=== PATIENT | female | born 1940 | race Caucasian/White ===

== ENCOUNTER 2025-03-20 20:57 | Emergency (ER) | payer MEDICARE, SELFPAY ==
--- NOTE | ~2025-03-20 | XR_ITS ---
XR chest 1V portable 03/20/2025 21:46 Indication: Delirium Procedure: AP portable chest Comparison: No prior studies for comparison. Findings: Cardiomegaly with mild interstitial edema. Elevated right diaphragm. No significant effusion or pneumothorax. Impression: 1: Cardiomegaly with mild interstitial edema. Reviewed, dictated and finalized at location O. Impression: 1: Cardiomegaly with mild interstitial edema.
[2025-03-20 21:05] VITALS: BP 159/67; PULSE 100; RESP 16; TEMP 36.6; O2SAT 93
[2025-03-20 21:38] LABS: Add Urine Microscopic? YES; Appearance Urine Turbid (Clear); Glucose Urine UA 2+ mg/dL (Negative); Leukocyte Esterase Ur 1+ LEU/UL (Negative); Need Manual Microscopic Reviewed; Nitrate Urine Negative (Negative); Specific Grav Ur 1.039 (1.001-1.035)
[2025-03-20] MEDS: SODIUM CHLORIDE 0.9% IV 1,000 ML 999 ML IV CONT (22:01)
[2025-03-20] MEDS: cefTRIAXone 1 GM in SODIUM CHLORIDE 0.9% IV 50 ML 100 ML IVPB (22:01)
[2025-03-20 22:03] LABS: Hematocrit 45.5 % (37.0-47.0); Hemoglobin 14.3 g/dL (12.0-15.0); Immature Granulocyte Percent A 0.3 % (0-0.5); Lymphocytes Absolute Auto 1.64 K/mm3 (0.9-3.2); Mean Corpuscular HGB Conc 31.4 g/dl (32-36); Mean Corpuscular Hemoglobin 27.9 pg (26-34); Mean Corpuscular Volume 88.9 fl (80-100); Nucleated Red Blood Cells Absolute Auto 0.000 K/mm3 (0.0-0.012); Nucleated Red Blood Cells Perc 0.0 % (0.0-0.2); Platelet Count Result 258 k/mm3 (150-375); Red Blood Count 5.12 M/mm3 (4.2-5.4); White Blood Count 6.8 K/mm3 (4.5-10.0)
--- OUTSIDE RECORDS SUMMARY | 2025-03-20 22:03 | XMS_ITS | Encounter Summary ---
Author Organization [facility] Healthcare Address [address] [place] [address] Care Team Providers Care Mutual Fund Analyst Name Role Phone Ugo Null MD Primary Care Provider Ирина Ley MA Unavailable [phone] Reason for Visit * Reason Onset Date Comments Medical Question/Miscellaneous 03/12/2025 Encounter Details Date Type Department Care Team (Late st Contact Info) Description 03/12/2025 Telephone [facility] Primary Care at [address] [place] [address] Ugo Null MD [address] [place] [address] [address] [place] [address] Medical Question/Miscellaneous Social History Tobacco Use Types Packs/Day Years Used Date Smoking Tobacco: Never Smokeless Tobacco: Never Alcohol Use Standard Drinks/Week Comments No 0 (1 standard drink = 0.6 oz pur e alcohol) AUDIT-C Answer Date Recorded Q1: How often do you have a drink containing alcohol? Never 09/25/2023 Q2: How many drinks containi ng alcohol do you have on a typical day when you are drinking? Patient does not drink Q3: How often do you have si x or more drinks on one occasion? Never 09/25/2023 PHQ-2 Answer Date Recorded PHQ-2 Total Score (If total score is 3 or more points, staff should administer the PHQ-9) 0 10/31/2024 Personal Safety Answer Date Recorded Have you ever been in or are you currently in a harmful physical or emotional relationship or is someone making you feel afraid or unsafe? 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[employer] Gender Identity Not on file Sexual Orientation Not on file documented as of this encounter Miscellaneous Notes * Telephone Encounter - Anisa Corral MA - 03/13/2025 7:46 AM CDT Provider completed task * Telephone Encounter - Ugo Null MD - 03/12/2025 4:59 PM CDT I spoke to the ER doctor about this and we are going to try a stronger medication * Telephone Encounter - Shilpa Sauecda - 03/12/2025 2:51 PM CDT Medical Question/Miscellaneous Caller???s Concern: Ro daughter, verified on HIPAA, said her mother got aggressive at the [facility] and was sent to the ER via ambulance and wanted the Dr to know what's going on. Does message need to be routed? Yes-Action Needed documented in this encounter Plan of Treatment Not on file documented as of this encounter Visit Diagnoses Not on filedocumented in this encounter Care Teams Mutual Fund Analyst Relationship Specialty Start Date End Date Ugo Null MD PCP - General 10/29/12 Ирина Ley MA [address] [facility] [address] [place] [address] ACO Care Plywood Stock Grader 03/13/25 documented as of this encounter
--- OUTSIDE RECORDS SUMMARY | 2025-03-20 22:03 | XMS_ITS | Encounter Summary ---
Author Organization [facility] Healthcare Address [address] [place] [address] Care Team Providers Care Lag Screwer Name Role Phone Ugo Null MD Primary Care Provider Ирина Ley MA Unavailable [phone] Reason for Visit * Reason Onset Date Comments Additional Services Or Orders 03/16/2025 Encounter Details Date Type Department Care Team (Late st Contact Info) Description 03/16/2025 Telephone [facility] Primary Care at [address] [place] [address] Ugo Null MD [address] [place] [address] [address] [place] [address] Additional Services Or Orders Social History Tobacco Use Types Packs/Day Years [...] on file 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 Fax number found in previous message. * Telephone Encounter - Ugo Null MD - 03/16/2025 12:12 PM CDT Okay PT OT and speech therapy modalities she has bad dementia * Telephone Encounter - Lorie Malin - 03/16/2025 9:59 AM CDT Additional Services or Orders Type of Service Requested:Occupational Therapy, Speech Therapy, and Physical Therapy Duration/Number of Visits: unknown Is a verbal order acceptable? Unknown Reason for Request (e.g. condition/symptom, date of COVID exposure if applicable): Trouble adjusting to assisted living states that there has been a previous discussion. Details Regarding Additional Services (e.g. type of home health, type of equipment, type of test, etc.): PT, OT, Speech Therapy Where will services be performed? (if outside of the practice, facility name, address, phone/fax offacility): [facility] Additional Comments: Patient's daughter Ro did not have any other information to provide. Does message need to be routed? Yes-Action Needed documented in this encounter Plan of Treatment Not on file documented as of this encounter Visit Diagnoses Not on filedocumented in this encounter Care Teams Lag Screwer Relationship Specialty Start Date End Date Ugo Null MD PCP - General 10/29/12 Ирина Ley, RAMOS [address] [facility] [address] [place] [address] ACO Care Horse Wrangler 03/13/25 documented as of this encounter
--- OUTSIDE RECORDS SUMMARY | 2025-03-20 22:03 | XMS_ITS | Encounter Summary ---
Author Organization [facility] Healthcare Address [address] [place] [address] Care Team Providers Care Linux Engineer Name Role Phone Ugo Null MD Primary Care Provider Ирина Ley MA Unavailable [phone] Reason for Visit * Reason Onset Date Comments Medical Question/Miscellaneous 02/20/2025 Call Back 02/20/2025 Encounter Details Date Type Department Care Team (Late st Contact Info) Description 02/20/2025 Telephone [facility] Medical Group Primary Care at [address] [place] [address] Ugo Null MD [address] [place] [address] [address] [place] [address] Medical Question/Miscellaneous ; Call Back Social History Tobacco Use Types Packs/Day Years [...] making you feel afraid or unsafe? 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 They received the wrong Patiens Paperwork. They need the H&P or last visit note. (They got Papers on a male, that doesn't even live there.) Physicians Certification form needs refilled out so they have the correct Papers. (The first time the first page did not go through.) Then, they will have everything they need, and she will be good to go. Please Fax these, SAMI. . Sending High Priority, as this is URGENT. Does message need to be routed? Yes-Action Needed * Telephone Encounter - Anisa Corral MA - 02/20/2025 2:34 PM CDT Paperwork re faxed * Telephone Encounter - Jackeline Mijares - 02/20/2025 2:29 PM CDT Call Back Caller???s Concern: Jeaneth with [facility] asking to have the Patient's requested paperwork (scanned in on 02/12/2025) faxed again. Jeaneth said one of the pages is blurry and they also received a medical record on a Patient not at their facility. warm transferred Jeaneth to the backline for assistance. Does message need to be routed? No documented in this encounter Plan of Treatment Not on file documented as of this encounter Visit Diagnoses Not on filedocumented in this encounter Care Teams Linux Engineer Relationship Specialty Start Date End Date Ugo Null MD PCP - General 10/29/12 Ирина Ley, RAMOS [address] [facility] [address] [place] [address] ACO Care Edger Runner 03/13/25 documented as of this encounter
--- OUTSIDE RECORDS SUMMARY | 2025-03-20 22:03 | XMS_ITS | Clinical Summary ---
Author Organization [facility] Medical Office Building A Address [address] [place] [address] Care Team Providers Care Bioinformatician Name Role Phone Ugo Null MD Primary Care Provider Ирина Ley MA Unavailable [phone] Allergies Active Allergy Reactions Criticality Noted Date Comments Latex Rash High 07/30/2018 Levofloxacin Other (See comments) Reaction: Gastrointestinal Intolerance, Naproxen Medications nystatin cream Apply topically 2 (two) times a day Under breasts 30 g 11 11/01/19 [address] (DEPAKOTE) 250 mg EC tablet Take 2 tablets (500 mg total) by mouth nightly Note higher dose 90 tablet 3 11/19/19 25 Active glimepiride (AMARYL) 2 mg tablet TAKE 1 TABLET BY MOUTH ONCE DAILY AFTER BREAKFAST 90 tablet 1 01/13/20 25 Active escitalopram (LEXAPRO) 10 mg tablet Take 2 tablets (20 mg total) by mouth daily 200 tablet 1 01/16/20 25 Active OLANZapine (ZyPREXA ZYDIS) 5 mg disintegrating tablet Take 1 tablet (5 mg total) by mouth nightly 30 tablet 03/12/20 25 2024 Active cholecalciferol (VITAMIN D-3) 5,000 unit tablet Take 1 tablet (5,000 Units total) by mouth daily 90 tablet 3 12/23/19 21 2024 Discontinued(N o longer taking - Do not display on AVS) aspirin 81 mg enteric coated tabletIndications :Ischemic vascular disease Take 1 tablet (81 mg total) by mouth daily 11/01/192024 Discontinued(N o longer taking - Do not display on AVS) QUEtiapine (SEROquel) 25 mg tablet Take 1 tablet (25 mg total) by mouth nightly For nighttime symptoms 30 tablet 11 02/28/202024 Discontinued(N o longer taking - Do not display on AVS) OLANZapine (ZyPREXA ZYDIS) 5 mg disintegrating tablet Take 1 tablet (5 mg total) by mouth nightly 30 tablet 03/12/202024 Discontinued Active Problems Problem Noted Date Diagnosed Date 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 Repeat vitamin-D level as scheduled Medicare annual wellness visit, subsequent 07/30 Assessment & Plan (07/30/2018 4:13 PM MORTGAGE PROFESSIONAL): Pt was advised to continue current therapy and medications for chronic conditions as previously as advised. Continue with healthy dietary management as well. Pt offered no additional complaints today in office. Preoperative medical clearance: Pt is medically stable and aware there are risk associated with surgery and anesthesia. He states the surgeon has reviewed these risk in detail with patient, and wishes to proceed with surgery. They are medically cleared for surgery at this time.. Pt was instructed to contact the office with absolutely any changes prior to and post surgery. We will see them back here as scheduled, or certainly sooner as needed. Hypertension associated with diabetes 11/22/2013 Overview (10/11/2016): BENIGN HYPERTENSION Assessment & Plan (12/21/2020 12:45 PM CDT): Recommend DASH diet, heart-healthy lifestyle, exercise. Discussed the risks of hypertension. Assessment & Plan (07/30/2018 4:09 PM MORTGAGE PROFESSIONAL): Asymptomatic at this time. Last hemoglobin A1c when checked was 7.4%. Under goal at 8%. Continue current dietary modifications, avoidance of consistent carbs to maintain glycemic control. Continue current hypertensives, dash diet, gradual increase exercise as tolerated, and follow-up in office for repeat labs and visit scheduled Gastroesophageal reflux disease 11/22/2013 Overview (10/13/2016): ESOPHAGEAL REFLUX Multiple-type hyperlipidemia 11/22/2013 Overview (10/14/2016): MIXED HYPERLIPIDEMIA Assessment & Plan (07/30/2018 4:06 PM MORTGAGE PROFESSIONAL): Stable with total cholesterol at 216, triglycerides 216, HDL 42, and LDL is 137. There is room for improvement. Continue to implement low-fat, heart healthy diet, increase exercise as tolerated and recheck labs in 2 months as scheduled prior to office visit Osteoarthritis of knee 11/29/2011 Overview (10/13/2016): Right knee DJD Generalized osteoarthritis 05/22/2011 Overview (10/11/2016): General Osteoarthrosis Assessment & Plan (07/30/2018 4:07 PM MORTGAGE PROFESSIONAL): Polyarthralgias well controlled with use of OTC anti-inflammatories p.r.n.. No limitations considering renal dysfunction. Continue application of heat and nonweightbearing exercises for control F/U as needed regarding condition Depression Overview (01/03/2022): Depression Resolved Problems Problem Noted Date Diagnosed Date Resolved Date Infected sebaceous cyst 12/27/201805/09 Assessment & Plan (12/27/2018 10:50 AM CDT): I&D completed today in clinic. Initiating empiric coverage with doxycyline pending results of wound culture. This appears to be an infected sebaceous cyst, but will provide Tdap vaccine D/T her concerns of an insect bite. Wound cleansing instructions provided today in clinic. RTC 1 week After cataract, left eye 07/30/2018 Age-related cataract of left eye 07/30/2018 07/30/2018 Assessment & Plan (07/30/2018 4:13 PM MORTGAGE PROFESSIONAL): Pt wishes to proceed forward with cataract extraction per ophthalmology's recommendation. Understanding risks and benefits review of comorbidities I did encourage Pt due for with cataract extraction with preoperative clearance provided office. Generalized abdominal pain 12/10/2017 0 07/30/2018 Assessment & Plan (12/17/2017 9:55 AM CDT): Abdominal CT scan was negative. I once again reiterated the findings hear any office has a did not demonstrate the cause of her abdominal discomfort therefore I recommended for her to see a GI specialist recommending Dr. Duncan as she has previously seen him was quite happy with his care however she wants to wait another week trying MiraLax once daily and then she will follow up with us over the phone if there is any desire to see a GI specialist to see about a possible colonoscopy or other testings recommended upon getting in with the specialist. Assessment & Plan (12/10/2017 10:08 AM CDT): Abdominal/pelvic CT ordered office today to evaluate for possible diverticulitis causing her symptoms based on abdominal pain, constipation will certainly touch base with her once holding call completed indicating need for additional management which an addendum will be completed and this note indicating need for next step in management Pain in right ankle and joints of right foot 7 07/30/2018 Assessment & Plan (12/29/2016 4:09 PM CDT): X-ray of the right foot and ankle reviewed. No acute fracture or dislocation to my eye. Further direction pending radiology interpretation. Patient stated she got to thinking about it and she thinks the fall was 6 weeks ago. Given persistent pain with ambulation I recommend ortho consultation. Patient would like to see Dr. Chand. Referral arranged. Continue heel walking for now. Enthesopathy of lower leg and ankle region 11/22/2013 05/24/2019 Overview (10/13/2016): ANKLE ENTHESOPATHY NOS Irritable bowel syndrome 11/22/2013 Overview (10/14/2016): IRRITABLE BOWEL SYNDROME Hypothyroidism 11/29/2011 10/31/2024 Overview (10/13/2016): Hypothyroidism Assessment & Plan (07/30/2018 4:16 PM MORTGAGE PROFESSIONAL): Previous euthyroid asymptomatic in office today. Upcoming TSH level scheduled prior to next office visit May to start on medications if indicated. Encounters Date Type Department Care Team Description 03/16/2025 Orders Only [facility] Primary Care at [address] [phone] Ugo Null MD Alzheimer's disease (Primary Dx) 03/16/2025 Telephone [facility] Medical [facility] Primary Care at [address] [phone] Ugo Null MD Additional Services Or Orders 03/13/2025 VAL ED Outreach [facility] Accountable Care Organization [address] [place] [id number] Ирина Ley MA 03/12/2025 4:36 PM CDT - 03/12/2025 11:59 PM CDT Hospital Encounter [facility] Moo Pang MD Discharge Disposition: Discharge to home or self care 03/12/2025 2:23 PM CDT - 03/12/2025 4:35 PM CDT Emergency [facility] Emergency Department [address] [place] [address] Moo Pang MD Aggressive behavior (Primary Dx) Discharge Disposition: Discharge to home or self care 03/12/2025 Telephone [facility] Primary Care at [address] [phone] Ugo Null MD Medical Question/Miscellane ous 03/03/2025 Orders Only [facility] Primary Care at [address] [phone] Ugo Null MD 03/02/2025 Telephone [facility] Primary Care at [address] [place] [phone] Ugo Null MD 02/27/2025 Orders Only [facility] Primary Care at [address] [place] [phone] Ugo Null MD 02/20/2025 Telephone [facility] Primary Care at [address] [place] [phone] Ugo Null MD Medical Question/Miscellane ous; Call Back 02/13/2025 Orders Only [facility] Primary Care at [address] [place] [phone] Ugo Null MD from Last 3 Months Immunizations Immunization Administration Dates Next Due Hep A, Adult 05/06/2015 Influenza, Quadrivalent, Hig h Dose, Preservative Free, Intrr 06/28/2021,05/24/2020 Influenza, Split 03/30/2010 Influenza, Trivalent, High D ose, Split, Preservative Free, Intramuscular 06/09/2019,06/09/2019,03/28/2018,05/17,05/08/2016,04/29/2015,04/02/2013 Influenza, Trivalent, IM (MDV) 06/24/2014,2012 Influenza, Trivalent, Preser vative Free, Intramuscular 07/09/2010 Influenza, Unspecified 09/25/2023(Deferr ed: Patient Refused),09/12/2022(Deferred: Patient Refused - getting at [facility]),03/28/2018 Moderna SARS-CoV-2 Monovalen t Vaccination (12+ YRS) 09/21/2020,08/18/2020 Pneumococcal Conjugate PCV 13 11/26/2014 Pneumococcal Polysaccharide PPV23 07/09/2010 Tdap 12/27/2018 ZOSTER LIVE 05/01/2017 Surgical History Surgery Date Site/Laterality Comments OTHER SURGICAL HISTORY 1982 cyst on liver: cyst removed HYSTERECTOMY 1979 Hysterectomy OTHER SURGICAL HISTORY 2011 Er Visit-swollen leg/[place] [facility] HYSTERECTOMY Hysterectomy HERNIA REPAIR Hernia repair Medical History Medical History Date Comments Hx Other Medical 01-CHEF SAUCIER Hx Other Medical 02-GI Hx Other Medical cyst on liver Arthritis Arthritis History of multiple allergies Al lergies Hypertension Hypertension Diabetes mellitus (HCC) Diabetes Disorder of thyroid Thyroid dise ase Cerebrovascular accident (CVA) (HCC) Cerebrovascular accident Hx Other Medical neuropathy Hx Other Medical poor circulatio n Hx Other Medical liver cystectom y Gastroesophageal reflux disease GERD Depression Depression Hyperlipidemia Hyperlipidemia Hx Other Medical spray in eyes i n agnes went to er; Comments: LNP 11/25/2013 - Family History Medical History Relation Name Comments Breast cancer Cousin Cancer, breast ; Breast cancer Daughter 2 Cancer, breast ; double masectomy Breast cancer Daughter 3 Cancer -breast ; Breast cancer Daughter 4 Cancer, breast ; Coronary artery disease Father Bella nary artery disease; Pancreatic cancer Father Cancer -pa ncreatic; /Cancer, pancreas; Cause of : Cancer, pancreas Colon cancer Mother Cancer, colon; Cause of : Cancer, colon Coronary artery disease Mother Bella nary artery disease; Dementia Mother Dementia; Diabetes Mother Diabetes mellit us; Hypertension Mother Hypertension; Stroke Mother Stroke; Thyroid disease Mother thyroid diso rder; Breast cancer Mother's Sister (2) Cancer, robert ast; Cause of : Cancer, breast Breast cancer Other 1 Maternal Cousin Cancer, robert ast; Cause of : Cancer, breast Blood Clot Other 2 Family history of blood clots; Heart disease Other 3 Family history of Heart disease; Hypertension Other 4 Family history of Hypertension; Osteoarthritis Other 5 Family histor y of Osteoarthritis; Other Other 6 Family history of Descent-; Brain cancer Paternal Grandmother Cancer, brain; Cause of : Cancer, brain Ovarian cancer Sister 1 Cancer -ovari an; Colon cancer Sister 2 Cancer -colon; Other Sister 3 Cancer - ovaria n, colon; Relation Name Status Comments Cousin Daughter 1 Alive Daughter 2 Daughter 3 Daughter 4 Father Mother Mother's Sister (2) Other 1 Maternal Cousin Other 2 Other 3 Other 4 Other 5 Other 6 Paternal Grandmother Sister 1 Sister 2 Sister 3 Social History Tobacco Use Types Packs/Day Years Used Date Smoking Tobacco: Never Smokeless Tobacco: Never Tobacco Cessation:Counseling Given: Not Answered Alcohol Use Standard Drinks/Week Comments No 0 [...] on file Legal Sex Female 8:01 PM MORTGAGE PROFESSIONAL Gender Identity Not on file Sexual Orientation Not on file Obstetrics History Last Filed Vital Signs Vital Sign Reading Time Taken Comments Blood Pressure 118/63 03/12/2025 2:45 PM CDT Pulse 80 03/12/2025 2:45 PM CDT Temperature 36.8 C (98.2 F) 03/12/2025 2:45 PM CDT Respiratory Rate 16 03/12/2025 2:45 PM CDT Oxygen Saturation 96% 03/12/2025 2:45 PM CDT Inhaled Oxygen Concentration - - Weight 78.9 kg (174 lb) 10/31/2024 11:22 AM CDT Height 160 cm (5' 3) 10/31/2024 11:22 AM CDT Body Mass Index 30.82 10/31/2024 11:22 AM CDT Plan of Treatment Health Maintenance Due Date Last Done Comments Hepatitis B Screening 10/09/1958 Zoster Vaccine (2 of 3) 06/26/2017 05/01/2017 Osteoporosis Screening-Bone Density Scan 01/25/2019 01/25/2017, 01/25/2017, 06/10/2010 Breast Cancer Screening-Mammogram 03/19/2021 03/19/2020, 03/19/2020, 03/05/2019, Additional history exists Dilated Eye Exam 03/19/2021 03/19/2020, 08/08/2018 Colon Cancer Screening-Colonoscopy 05/16/2021 05/16/2016, 05/16/2016, 05/16/2016, Additional history exists Covid-19 Vaccine (3 - 2024-2 6 season) 2025 09/21/2020, 08/18/2020 Influenza Vaccine (#1) 2025 , 05/24/2020, 06/09/2019, Additional history exists Hemoglobin A1C 05/02/2025 10/31/2024, 03/0 12/2022, 01/05/2022, Additional history exists Albumin Creatinine Ratio, Urine 10/31/2025 10/31/2024, 01/05/2022, 06/10/2021, Additional history exists Depression Screening 10/31/2025 10/31/2024, 09/25/2023, 09/11/2022, Additional history exists Fall Risk Assessment 10/31/2025 10/31/2024, 09/25/2023, 09/11/2022, Additional history exists Foot Exam 10/31/2025 10/31/2024, 1 03/2024, 09/11/2022, Additional history exists Lipid Panel 10/31/2025 10/31/2024, 03/0 12/2022, 01/05/2022, Additional history exists Well Visit 65+ 10/31/2025 10/31/2024, 03/0 12/2022, 06/28/2021, Additional history exists eGFR 03/12/2026 03/12/2025, 2 11/2024, 09/20/2023, Additional history exists DTaP/Tdap/Td Vaccine (2 - Td or Tdap) 12/27/2028 12/27/2018 Pneumococcal vaccine 65+ Completed 11/26/2014, 07/2010 Colon Cancer Screening-CT Colonography Discontinued 05/16/2016, 05/16/2016, 05/16/2016, Additional history exists Colon Cancer Screening-DNA Stool Discontinued 05/16/2016, 05/16/2016, 05/16/2016, Additional history exists Colon Cancer Screening-FIT Discontinued 05/16, 05/16/2016, 05/16/2016, Additional history exists Colon Cancer Screening-Sigmoidoscopy Discontinued 05/16/2016, 05/16/2016, 05/16/2016, Additional history exists Procedures Procedure Name Priority Date/Time Associated Diagnosis Comments EGFR STAT 03/12/2025 2:54 PM CDT DIFFERENTIAL AUTO STAT 03/12/2025 2:5 4 PM CDT VALPROIC ACID LEVEL, TOTAL STAT 03/12/2025 2:54 PM CDT COMPREHENSIVE METABOLIC PANEL STAT 03/12/2025 2:54 PM CDT CBC WITH AUTO DIFFERENTIAL STAT 03/12/2025 2:54 PM CDT URINALYSIS AND REFLEX TO MICROSCOPIC AND CULTURE STAT 03/12/2025 2:54 PM CDT HEMOGLOBIN A1C Routine 10/31/2024 12:25 PM CDT Hypertension associated with diabetes (HCC) LIPID PANEL Routine 10/31/2024 12:25 PM CDT Hypertension associated with diabetes (HCC) ALBUMIN CREATININE RATIO, URINE Routine 10/31/2024 12:25 PM CDT Hypertension associated with diabetes (HCC) DIABETIC EYE EXAM Routine 03/19/2020 SCREENING MAMMOGRAM BILATERAL W SHAHID Schedule Routine, Read Routine (OP Routine) 03/19/2020 DIABETES FOOT EXAM Routine 11/25/2019 DEXA SCAN Routine 01/25/2017 COLONOSCOPY IMAGES 05/16/2016 from Last 3 Months or Most Recently Relevant to Health Maintenance Results * eGFR (03/12/2025 2:54 PM CDT) eGFR 89 >=60 mL/min/1. 73 m2 Comment: Interpretive Data Reference Interval Normal >/= 90 mL/min/1.73m2 Mildly decreased* 60 - 89 mL/min/1.73m2 Mildly to moderately decreased 45 - 59 mL/min/1.73m2 Moderately to severely decreased 30 - 44 mL/min/1.73m2 Severely decreased 15 - 29 mL/min/1.73m2 Kidney Failure < 15 mL/min/1.73m2 *Relative to young adult level Estimated glomerular filtration rate is determined by the 2020 CKD-EPI equation recommended by the National Kid[employer] (A Unifying Approach to GFR Estimation: Recommendations of the NKF-ASK Task Force on Reassessing the Inclusion of Race in Diagnosing Kidney Disease, JASN 2020). The CKD-EPI equation should not be used for patients with unstable renal function and has not been validated in children and those over 70. Current interpretive data was last reviewed 2021. Blood 03/12/2025 2:54 PM CDT 03/12/2025 2:57 PM CDT us Moo Pang MD LAB BLOOD ORDERABLES Final R esult JAMES BORJAS ([place]) 1 [facility] Department [place] [address] * Differential, auto (03/12/2025 2:54 PM CDT) Neutrophil abs 3.73 1.50 - 6.50 K/cumm Imm gran abs 0.01 0.00 - 0.10 K/cumm [facility] ([place]) Lymphocyte abs 2.29 0.80 - 3.30 K/cumm [facility] ([place]) Monocyte abs 0.60 0.20 - 0.80 K/cumm [facility] ([place]) Eosinophil abs 0.29 0.00 - 0.50 K/cumm [facility] ([place]) Basophil abs 0.04 0.00 - 0.10 K/cumm [facility] ([place]) Neutrophil pct 53.6 % [facility] ([place]) Comment: Interpretive Data Percent cell count reference ranges are not reported, since discordance with absolute values may lead to misinterpretation of CBC data. Current Interpretive Data was last revised on 2017. Imm gran pct 0.1 % [facility] ([place]) Comment: Interpretive Data Percent cell count reference ranges are not reported, since discordance with absolute values may lead to misinterpretation of CBC data. Current Interpretive Data was last revised on 2017. Lymphocyte pct 32.9 % [facility] ([place]) Comment: Interpretive Data Percent cell count reference ranges are not reported, since discordance with absolute values may lead to misinterpretation of CBC data. Current Interpretive Data was last revised on 2017. Monocyte pct 8.6 % [facility]OR[facility] ([place]) Comment: Interpretive Data Percent cell count reference ranges are not reported, since discordance with absolute values may lead to misinterpretation of CBC data. Current Interpretive Data was last revised on 2017. Eosinophil pct 4.2 % [facility] ([place]) Comment: Interpretive Data Percent cell count reference ranges are not reported, since discordance with absolute values may lead to misinterpretation of CBC data. Current Interpretive Data was last revised on 2017. Basophil pct 0.6 % [facility]OR[facility] ([place]) Comment: Interpretive Data Percent cell count reference ranges are not reported, since discordance with absolute values may lead to misinterpretation of CBC data. Current Interpretive Data was last revised on 2017. Blood 03/12/2025 2:54 PM CDT 03/12/2025 2:57 PM CDT us Moo Pang MD LAB BLOOD ORDERABLES Final R esult [facility]OR[facility] ([place]) 1 [facility] Department [place] [address] * (ABNORMAL) Urinalysis reflex to microscopic and culture Urine (03/12/2025 2:54 PM CDT) Color, ur Yellow Yellow Clarity, ur Clear Clear AJMES Maier ([place]) Specific gravity, ur 1.028 1.003 - 1.030 [facility] ([place]) pH, urine 5.5 [facility] ([place]) Comment: Interpretive Data U rine pH is affected by diet, medications, systemic acid-base disturbances, and renal tubular function. pH may affect urinary stone formation. For example, urine pH below 6.0 may help reduce the tendency for calcium phosphate stones and pH greater than 6.0 may reduce the tendency for uric acid stone formation. Source: [facility] [employer] Current Interpretive Data was last revised on 2017 Protein, ur ql Trace Negative [facility]ERNE Dena BORJ[facility] ([place]) Glucose, ur ql 4+(A) Negative [facility] ([place]) Ketones, ur Trace Negative [facility] ([place]) Bilirubin, ur Negative Negative [facility] ([place]) Blood, ur Negative Negative [facility] ([place]) Urobilinogen, ur <2.0 <2.0 mg/dL [facility] ([place]) Nitrite, ur Negative Negative [facility] ([place]) Leukocyte esterase, ur Negative Negative [facility] ([place]) UA reflex comment Reflex conditions for microscopic UA and culture not met. [facility] ([place]) Urine 03/12/2025 2:54 PM CDT 03/12/2025 2:57 PM CDT us Moo Pang MD LAB MICROBIOLOGY - GENERAL O RDERABLES Final Result [facility] ([place]) 1 [facility] Department [place] [address] * CBC with auto differential (03/12/2025 2:54 PM CDT) WBC 6.96 3.80 - 9.90 K/cumm Hgb 13.4 11.9 - 15.5 g/dL [facility] ([place]) Hct 41.1 35.6 - 45.5 % [facility] ([place]) Plt 250 150 - 400 K/cumm [facility] ([place]) MPV 9.1 9.1 - 12.3 fL [facility] ([place]) RBC 4.63 3.90 - 5.20 M/cumm [facility] ([place]) MCV 88.8 81.3 - 96.4 fL [facility] ([place]) MCH 28.9 27.1 - 33.3 pg [facility] ([place]) MCHC 32.6 32.3 - 35.7 g/dL [facility] ([place]) RDW CV 14.3 11.1 - 14.9 % [facility] ([place]) RDW SD 46.0 35.7 - 48.1 fL [facility] ([place]) NRBC abs 0.00 0.00 - 0.01 K/cumm [facility] ([place]) Blood 03/12/2025 2:54 PM CDT 03/12/2025 2:57 PM CDT Moo Pang MD LAB BLOOD ORDERABLES Final R esult Performing Organization Address City/[facility]/ZIP Co de Phone Number JAMES BORJAS ([place]) 1 [facility] [place] [address] * (ABNORMAL) Valproic acid level, total (03/12/2025 2:54 PM CDT) Valproic Acid 6.6(L) 50.0 - 100.0 mcg/mL [facility] ([place]) Comment: Interpretive Data Therapeutic range: 50-100 mcg/mL Current interpretive data was last revised on 2014 Blood 03/12/2025 2:54 PM CDT 03/12/2025 2:57 PM CDT Moo Pang MD LAB BLOOD ORDERABLES Final R esult Performing Organization Address City/[facility]/ZIP Co de Phone Number JAMES BORJAS ([place]) 1 [facility] [place] [address] * (ABNORMAL) Comprehensive metabolic panel (03/12/2025 2:54 PM CDT) Sodium 136 135 - 145 mmol/L [facility] ([place]) Potassium, pl 4.7 3.3 - 4.9 mmol/L [facility] ([place]) Chloride 103 97 - 110 mmol/L [facility] ([place]) CO2 22 22 - 32 mmol/L [facility] ([place] Anion gap 11 2 - 15 mmol/L [facility] ([place]) BUN 16 6 - 25 mg/dL [facility] ([place]) Creatinine 0.57(L) 0.60 - 1.10 mg/dL [facility] ([place]) Glucose 243(H) 70 - 199 mg/dL [facility] ([place]) Comment: Interpretive Data Fasting glucose >/= 126 mg/dl is diagnostic for diabetes. Fasting is defined as no caloric intake for at least 8 hours. Fasting glucose between 100 mg/dl to 125 mg/dl is diagnostic of prediabetes. In a patient with classic symptoms of hyperglycemia or hyperglycemic crisis, a random glucose >/= 200 mg/dl is diagnostic for diabetes. In the absence of unequivocal hyperglycemia, results should be confirmed by repeat testing. The classification and Diagnosis of Diabetes Diabetes Care 2021; 46: S19-S40. Current interpretive data was last revised 2022. Calcium 9.2 8.5 - 10.3 mg/dL [facility] ([place]) Bilirubin, total <0.2 0.1 - 1.2 mg/dL [facility] ([place]) Protein, pl 6.8 6.5 - 8.5 g/dL [facility] ([place]) Albumin 3.9 3.5 - 5.0 g/dL [facility] ([place]) Alk phos 69 40 - 130 Units/L [facility] ([place]) ALT 18 7 - 45 Units/L [facility] ([place]) AST 17 10 - 45 Units/L [facility] ([place]) Comment:Hemolysis present. R esults may be affected. Blood 03/12/2025 2:54 PM CDT 03/12/2025 2:57 PM CDT Moo Pang MD LAB BLOOD ORDERABLES Final R esult [facility] ([place]) 1 [facility] Department [place] [address] * Albumin Creatinine Ratio, Urine (10/31/2024 12:25 PM CDT) Albumin Ur 24.6 mg/L Comment: Interpretive Data No reference range established. Current interpretive data was last revised 2018. Testing performed by: [facility], [address] [place] [address], [place]., [address] Creatinine Ur 233.9 mg/dL [facility] ([place]) Comment: Interpretive Data No reference range established. Current interpretive data was last revised 2018. Testing performed by: [facility], [address] [place] [address], [place]., [address] Albumin Creatinine Ratio, Ur 11 1 - 29 mg/g [facility] ([place]) Comment:Testing performed by : [facility], [address] [place] [address], [place]., [address] Urine 10/31/2024 12:2 5 PM CDT 10/31/2024 4:19 PM CDT Ugo Null MD LAB URINE ORDERABLES Fi nal Result Performing Organization Address [facility] de Phone Number JAMES BORJAS ([place]) [address] [place] [address] * (ABNORMAL) Hemoglobin A1c (10/31/2024 12:25 PM CDT) Hgb A1C 8.0(H) 4.0 - 5.6 % Estimated Average Glucose 183 mg/dL JAMES BORJ[facility] ([place]) Comment: The ADA recommends reporting an estimated Average Glucose (eAG) with all Hemoglobin A1c results using the equation derived from a study of 507 normal and diabetic adults. Minority populations were underrepresented and children were not included. (Diabetes Care 31:0394-7026, 2008). The eAG is not equivalent to a fasting glucose. Blood 10/31/2024 12:2 5 PM CDT 10/31/2024 1:23 PM CDT Ugo Null MD LAB BLOOD ORDERABLES nal Result Performing Organization Address [facility] Co de Phone Number JAMES BORJAS ([place]) [address] [place] [address] * (ABNORMAL) Lipid panel (10/31/2024 12:25 PM CDT) Cholesterol 219(H) 30 - 199 mg/dL Comment: Interpretive Data Ages < or = 19 years Acceptable: <170 mg/dL Borderline high: 170-199 mg/dL High: >or= 200 mg/dL Ages > or = 20 years Desirable: <200 mg/dL Borderline high: 200-239 mg/dL High: >or= 240 mg/dL Literature References: 1. Expert Panel on Integrated Guidelines for Cardiovascular Health and Risk Reduction in Children and Adolescents. Pediatrics 2011;128:S213 2. NCEP Expert Panel. Circulation 2004;110:227 Current Interpretive Data was last revised on 2018. Triglycerides 293(H) <=149 mg/dL JAMES BORJAS ([place]) Comment: Interpretive Data Ages < or = 9 years Acceptable: <75 mg/dL Borderline high: 75-99 mg/dL High: >or= 100 mg/dL Ages 10 to 20 years Acceptable: <90 mg/dL Borderline high: 90-129 mg/dL High: >or= 130 mg/dL Ages > or = 20 years Desirable: <150 mg/dL Borderline high: 150-199 mg/dL High: 200-499 mg/dL Very high: >or= 499 mg/dL Literature References: 1. Expert Panel on Integrated Guidelines for Cardiovascular Health and Risk Reduction in Children and Adolescents. Pediatrics 2011;128:S213 2. NCEP Expert Panel. Circulation 2004;110:227 Current Interpretive Data was last revised on 2018. HDL 49 >=40 mg/dL JAMES BORJAS ([place]) Comment: Interpretive Data Ages < or = 19 years Acceptable: >45 mg/dL Borderline low: 40-45 mg/dL Low: <40 mg/dL Ages > or = 20 years Desirable: >or= 60 mg/dL Low: <40 mg/dL Literature References: 1. Expert Panel on Integrated Guidelines for Cardiovascular Health and Risk Reduction in Children and Adolescents. Pediatrics 2011;128:S213 2. NCEP Expert Panel. Circulation 2004;110:227 Current Interpretive Data was last revised on 2018. LDL, calculated 119 <=129 mg/dL JAMES BORJAS ([place]) Comment: Interpretive Data Ages < or = 19 years Acceptable: <110 mg/dL Borderline high: 110-129 mg/dL High: >or= 130 mg/dL Ages > or = 20 years Optimal: <100 mg/dL Near optimal: 100-129 mg/dL Borderline high: 130-159 mg/dL High: >160 mg/dL Calculated using the Horne LDL-C estimating equation. This equation was implemented on 2024. Prior to this date LDL-C was estimated using the Friedewald equation. Literature References: 1. Expert Panel on Integrated Guidelines for Cardiovascular Health and Risk Reduction in Children and Adolescents. Pediatrics 2011;128:S213 2. NCEP Expert Panel. Circulation 2004;110:227 3. Ozzie M et al. DANIEL Cardiol. 2019November 06;5(5):540-548. doi: 10.1001/[email or web address].2020.0013 Current Interpretive Data was last revised on 2024. Non-HDL Cholesterol 170 mg/dL JAMES BORJAS ([place]) Comment: Interpretive Data Ages < or = 19 years Acceptable: <120 mg/dL Borderline high: 120-144 mg/dL High: >145 mg/dL Ages > or = 20 years When triglycerides are >200 mg/dL, Non-HDL cholesterol is a secondary target of therapy with treatment goals that are 30 mg/dL greater than the LDL cholesterol target. Literature References: 1. Expert Panel on Integrated Guidelines for Cardiovascular Health and Risk Reduction in Children and Adolescents. Pediatrics 2011;128:S213 2. NCEP Expert Panel. Circulation 2004;110:227 Current Interpretive Data was last revised on 2018. Chol/HDL ratio 4 SAROJ BORJAS ([place]AN) Blood 10/31/2024 12:2 5 PM CDT 10/31/2024 1:23 PM CDT Narrative JAMES BORJAS ([place]) - 10/31/2024 2:11 PM CDT Has the patient been fasting for 8 hours or more?->Yes Ugo Null MD LAB BLOOD ORDERABLES Fi nal Result JAMES BORJAS ([place]) 1 [facility] Department [place] [address] * Diabetic Eye Exam (03/19/2020) Historical Provider HEALTH MAINTENANCE Final Result * Screening Mammogram Bilateral W Shahid (03/19/2020) Anatomical Region Laterality Modality Breast Bilateral Mammography Historical Provider IMG MAMMO PROCEDURES Idalmis l Result * DIABETES FOOT EXAM (11/25/2019) Diabetic Foot Exam Abnormal Historical Provider HEALTH MAINTENANCE Final Result * DEXA SCAN (01/25/2017) DEXA Scan Normal us Historical Provider HEALTH MAINTENANCE Final Result * COLONOSCOPY IMAGES (05/16/2016) Anatomical Region Laterality Modality Other Narrative 05/16/2016 Ordered by an unspecified provider. Historical Provider GI PROCEDURE ORDERABLES F inal Result from Last 3 Months or Most Recently Relevant to Health Maintenance Insurance [facility] MEDICARE SUPPLEMENT INSURANCE MEDICARE MEDICARE [facility] MEDICARE SUPPLEMENT INSURANCE MEDICARE [facility] MEDICARE SUPPLEMENT INSURANCE Care Teams Bioinformatician Relationship Specialty Start Date End Date Ugo Null MD PCP - General 10/29/12 Ирина Ley MA [address] [place] [id number] ACO Care Houseperson 03/13/25
--- OUTSIDE RECORDS SUMMARY | 2025-03-20 22:04 | XMS_ITS | Encounter Summary ---
Author Organization [employer] [facility] Address [address] [place] [address] Care Team Providers Care Aeronautical Design Engineer Name Role Phone Ugo Null MD Primary Care Provider Encounter Details Date Type Department Care Team (Late st Contact Info) Description 05/20/2007 Outpatient Historical [facility] Nai Mcrae MD 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
--- OUTSIDE RECORDS SUMMARY | 2025-03-20 22:04 | XMS_ITS | Clinical Summary ---
Author Organization [facility] Administrative Offices Address [address] [place] [address] Care Team Providers Care Correctional Agency Director Name Role Phone Ugo Null MD Primary Care Provider [phone] Allergies Active Allergy Reactions Criticality Noted Date Comments Acetaminophen Unknown 04/09/2007 Latex Unknown 04/09/2007 Medications DYAZIDE PO Take by mouth daily. 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 Gender Identity Not on file Sexual Orientation Not on file Last Filed Vital Signs Vital Sign Reading Time Taken Comments Blood Pressure 140/88 04/09/2007 10:55 AM CDT Pulse 78 04/09/2007 10:55 AM CDT Temperature - - Respiratory Rate - - Oxygen Saturation - - Inhaled Oxygen Concentration - - Weight 88.9 kg (196 lb) 04/09/2007 10:55 AM CDT Height 162.6 cm (5' 4) 04/09/2007 10:55 AM CDT Body Mass Index 33.64 04/09/2007 10:55 AM CDT Plan of Treatment Health Maintenance Due Date Last Done Comments DIABETES ANNUAL RETINAL EXAM 10/09/1957 DIABETES MICROALBUMIN ANNUAL SCREEN 10/09/1957 LDL CHOLESTEROL ANNUAL 10/09/1957 ZOSTER VACCINE (1 of 2) 10/09/1989 OSTEOPOROSIS SCREENING 10/09/2004 RSV VACCINE (60+ or ) (1 - 1-dose 75+ series) 10/09/2014 DIABETES HBA1C Q 6 MONTHS 11/07/2019 05/09/2019, 10/2017 DIABETES ANNUAL FOOT EXAM 11/24/2020 11/25/2019 INFLUENZA VACCINE (#1) 2025 9, 03/28/2018, 05/17/2017, Additional history exists DTAP/TDAP/TD VACCINES (2 - T d or Tdap) 12/27/2028 12/27/2018 COLORECTAL SCREENING Discontinued 05/20/2007 Colorectal Cancer Screening Discontinued PNEUMOCOCCAL VACCINE 50+ YEARS Completed 11/26/2014 , 07/09/2010 FIT-DNA Q 3 years Discontinued FIT/FOBT Q 1 year Discontinued Flex Sig/CT Colonography Q 5 years Discontinued Insurance [facility]IC[facility] [place] [id number] Care Teams Correctional Agency Director Relationship Specialty Start Date End Date Ugo Null MD [address] [place] [address] [place] [address] PCP - General Internal Medicine 02/04/18
--- OUTSIDE RECORDS SUMMARY | 2025-03-20 22:04 | XMS_ITS | Encounter Summary ---
Author Organization [facility] Address [address] [place] [address] Care Team Providers Care Ophthalmic Surgical Assistant Name Role Phone Ugo Null MD Primary Care Provider Ugo Null MD Primary Care Provider Simone Rickyabdullahi Ruvalcaba LPN Unavailable [phone] Ирина Ley MA Unavailable [phone] Reason for Referral * Diagnostic Imaging (Routine) - Closed Specialty Diagnoses / Procedures Referred By Contac t Referred To Contact Procedures Dexa Axial Skeleton Bone Density 1 or 2 Site [facility] Health Information Management [address] [place] [address] Phone: tel: fax: [facility] Referral ID Status Reason Start Date Expiration Date Visits Re quested Visits Authorized [id number] Closed 05/08/2019 11/16/2020 1 1 YLENE TORCH OPERATOR Encounter Details Date Type Department Care Team (Late st Contact Info) Description 06/10/2010 Orders Only [facility] Health Information Management [address] [place] [id number] Ugo Null MD [address] [place] [address] [place] [address] Social History Tobacco Use Types Packs/Day Years Used Date Smoking Tobacco: Never Assessed Comments Unknown Sex and Gender Information Value Date Recorded Sex Assigned at Not on file Legal Sex Female 8:01 PM ACETYLENE TORCH OPERATOR Gender Identity Not on file Sexual Orientation Not on file documented as of this encounter Plan of Treatment Not on file documented as of this encounter Procedures Procedure Name Priority Date/Time Associated Diagnosis Comments DEXA AXIAL SKELETON BONE DENSITY 1 OR MORE SITES Schedule Routine, Read Routine (OP Routine) 06/10/2010 documented in this encounter Results * Dexa Axial Skeleton Bone Density 1 or 2 Site (06/10/2010) Anatomical Region Laterality Modality Body N/A Radiographic Elle ging Historical Provider MD ESPARZA DXA PROCEDURES Final Result documented in this encounter Visit Diagnoses Not on filedocumented in this encounter Additional Health Concerns Infection Onset Date Last Indicated Resolved Time COVID: Suspected 09/20/2023 09/20/2023 09/20/2023 11:11 PM CDT documented as of this encounter Care Teams Ophthalmic Surgical Assistant Relationship Specialty Start Date End Date Ugo Null MD PCP - General 10/29/12 Ugo Null MD PCP - General 05/09/07 10/28/12 Michelle Nichols LPN [address] [place], [place] [id number] ACO Care Automobile Glass Technician 09/24/23 09/26/23 Ирина Ley MA [address] [place] [address] ACO Care Automobile Glass Technician 03/13/25 documented as of this encounter
--- OUTSIDE RECORDS SUMMARY | 2025-03-20 22:04 | XMS_ITS | Clinical Summary ---
Author Organization [facility] [employer] Address [address] [place] [address] Care Team Providers Care Rn Homecare Name Role Phone Ugo Null MD Primary Care Provider Source Comments [facility] [employer],non-owned Affiliates and Associated Physician Practices is amultiple site organization consisting of ambulatory clinics and hospital sitesin [place], [place], [place] and [place]. This disclosure is being madepursuant to the Care Everywhere program and may not contain all information available regarding this patient. Last updated 18.[facility] [employer] Allergies Active Allergy Reactions Criticality Noted Date Comments Adhesive Sensitivity Itching 06/17/2019 Latex Itching 06/17/2019 Medications * Be aware that medications may not be up to date on this document. Alwaysverify current medications with the patient. amLODIPine (NORVASC) 5 MG tablet TAKE 1 TABLET BY MOUTH TWICE DAILY 9 Active metFORMIN ER 24hr (GLUCOPHAGE XR) 500 MG tablet TAKE 2 TABLETS BY MOUTH ONCE DAILY WITH BREAKFAST 3 9 Active pantoprazole EC (PROTONIX) 40 MG tablet TAKE ONE TABLET BY MOUTH ONCE DAILY FOR ACID REFLUX 8 Active Active Problems Problem Noted Date Diagnosed Date Primary osteoarthritis of right knee 06/23/2019 Social History Tobacco Use Types Packs/Day Years Used Date Smoking Tobacco: Never Assessed Comments Unknown Sex and Gender Information Value Date Recorded Sex Assigned at Not on file Legal Sex Female 1:32 PM PLANT PRODUCTION MANAGER Gender Identity Not on file Sexual Orientation Not on file Last Filed Vital Signs Vital Sign Reading Time Taken Comments Blood Pressure - - Pulse - - Temperature - - Respiratory Rate - - Oxygen Saturation - - Inhaled Oxygen Concentration - - Weight 86.2 kg (190 lb) 06/17/2019 11:06 AM PLANT PRODUCTION MANAGER Height 162.6 cm (5' 4) 06/17/2019 11:06 AM PLANT PRODUCTION MANAGER Body Mass Index 32.61 06/17/2019 11:06 AM PLANT PRODUCTION MANAGER Plan of Treatment Health Maintenance Due Date Last Done Comments BONE DENSITY TESTING 1939 DTAP/TDAP/TD VACCINES (1 - Tdap) 10/09/1958 PNEUMOCOCCAL VACCINE 50+ (1 of 1 - PCV) 10/09/1989 ZOSTER VACCINE (1 of 2) 10/09/1989 Respiratory Syncytial Virus (RSV) Vaccine Pt: or over 60 yrs (1 - 1-dose 75+ series) 10/09/2014 DEPRESSION SCREENING 07/09/2024 COVID-19 VACCINE ( - season) 2025 INFLUENZA VACCINE (#1) 2025 9, 03/28/2018, 05/17/2017, Additional history exists HEPATITIS B VACCINE Aged Out No longe r eligible based on patient's age to complete this topic HIB VACCINE Aged Out No longer eligi ble based on patient's age to complete this topic HPV VACCINE Aged Out No longer eligi ble based on patient's age to complete this topic MENINGOCOCCAL (Group B) VACCINE SHARED DECISION-MAKING Aged Out No longer eligible based on patient's age to complete this topic MENINGOCOCCAL GROUPS A/C/Y/W VACCINE Aged Out No longer eligible based on patient's age to complete this topic Insurance MEDICARE [employer] INSURANCE [employer] Care Teams Rn Homecare Relationship Specialty Start Date End Date Ugo Null MD [address] [place] [id number] PCP - General Internal Medicine 06/17/19
--- NOTE | 2025-03-20 22:07 | ED_ITS ---
HPI - General Adult General Chief complaint: Psychiatric Symptoms Stated complaint: AGGRESSIVE BEHAVIOR AT [facility] Time Seen by Provider: 03/20/25 20:59 History of Present Illness HPI narrative: Patient is an 84-year-old female who presents the emergency department this evening from her [facility] care facility due to aggressive behavior towards staff. Patient is alert and oriented to person only which is her baseline. She is currently common cooperative, not aggressive towards staff. No additional symptoms or concerns. Related Data Allergies Allergy/AdvReac Type Severity Reaction Status Date / Time latex Allergy Unknown SKIN Unverified 03/29/16 12:13 IRRITATION No Known Allergies Allergy Unknown Verified 03/29/16 12:06 Review of Systems 2 Review of Systems: All systems are reviewed and are negative unless stated otherwise in the HPI. [facility] Family History Family History Mother Cerebrovascular accident Other Diabetes mellitus Family history of cardiovascular disease Family history of malignant neoplasm Hypertension Social History Social History Smoking status: Never smoker Alcohol intake: never Substance use type: does not use Exam 2 Narrative: General: Alert, awake, afebrile, in no acute distress. HEENT: PERRL, no rhinorrhea, no post nasal drip, oropharynx clear. Neck: Trachea midline, no JVD, no lymphadenopathy. Cardiovascular: Regular rate and rhythm, no murmurs, rubs or gallops, no peripheral edema. Respiratory: Clear to auscultation bilaterally, no tachypnea, no wheezing, no rhonchi, no rubs, no respiratory distress. Abdomen: Soft, nontender, nondistended, no rebound, no guarding, no peritoneal signs. Musculoskeletal: No joint swelling or deformity, normal muscle tone. Skin: No rashes or petechia, no signs of infection. Psychiatric: Normal behavior and judgment for situation. Neurological: Alert and oriented to person, at baseline Follows all commands. No focal deficits, speech is clear and fluent. Course Vital Signs Vital signs: Vital Signs Temperature 97.9 F 03/20/25 21:05 Pulse Rate 100 03/20/25 21:05 Respiratory Rate 16 03/20/25 21:05 Blood Pressure 159/67 H 03/20/25 21:05 Pulse Oximetry 93 03/20/25 21:05 Oxygen Delivery Room Air 03/20/25 21:05 Temperature 97.9 F 03/20/25 21:05 Pulse Rate 100 03/20/25 21:05 Respiratory Rate 16 03/20/25 21:05 Blood Pressure 159/67 H 03/20/25 21:05 Pulse Oximetry 93 03/20/25 21:05 Oxygen Delivery Room Air 03/20/25 21:05 Medical Decision Making MDM Narrative Medical decision making narrative: The patient was evaluated by myself in the emergency department. History is obtained from patient who is an independent historian and physical exam was performed. External medical records were reviewed at this time. IV was established and pertinent tests were ordered. Patient was administered 1 L IV fluid bolus with normal saline. Laboratory results obtained revealing no acute process. Urinalysis revealed urinary tract infection. Patient was administered 1 g of IV Rocephin at this time and from the she will be sent back to her [facility] care facility on oral antibiotics. Imaging studies obtained included CXR which was independently interpreted by me revealing no acute process, elevation of the right hemidiaphragm, which is pending final radiology interpretation. Differential diagnosis considerations include delirium versus dementia, infectious process such as pneumonia, UTI, dehydration, electrolyte derangements. Comorbidities impacting this visit include history of dementia. I have evaluated and discussed social determinants of health with the patient that could potentially impact subsequent diagnosis and treatment plans. On repeat assessment of the patient, reevaluation revealed that the patient is doing well and is in no acute distress. Patient symptoms have improved since she arrived to our emergency department. Repeat vital signs were all reviewed and noted to be stable. Differential diagnosis and treatment plan were discussed with the patient at bedside. Patient agrees with discussion and after shared medical decision making agrees with discharge. All questions were answered to the patient's satisfaction. Patient will follow up with her PCP in 3-5 days. Script for cephalexin was sent to patient's pharmacy to take as prescribed for her UTI. Patient was provided with strict return precautions and instructed to return to the emergency department if any new or worsening symptoms develop. The patient was discharged in stable condition. Vital Signs Vital Signs: Vital Signs Temperature 97.9 F 03/20/25 21:05 Pulse Rate 100 03/20/25 21:05 Respiratory Rate 16 03/20/25 21:05 Blood Pressure 159/67 H 03/20/25 21:05 Pulse Oximetry 93 03/20/25 21:05 Oxygen Delivery Room Air 03/20/25 21:05 Temperature 97.9 F 03/20/25 21:05 Pulse Rate 100 03/20/25 21:05 Respiratory Rate 16 03/20/25 21:05 Blood Pressure 159/67 H 03/20/25 21:05 Pulse Oximetry 93 03/20/25 21:05 Oxygen Delivery Room Air 03/20/25 21:05 Lab Data 03/20/25 21:20 03/20/25 21:20 Labs: Lab Results 03/20/25 Range/Units 21:20 WBC 6.8 (4.5-10.0) K/mm3 RBC 5.12 (4.2-5.4) M/mm3 Hgb 14.3 (12.0-15.0) g/dL Hct 45.5 (37.0-47.0) % MCV 88.9 (80-100) fl MCH 27.9 (26-34) pg MCHC 31.4 L (32-36) g/dl RDW 13.8 (11.5-14.5) % Plt Count 258 (150-375) k/mm3 MPV 9.0 (7.4-10.4) fl Immature Gran % (Auto) 0.3 (0-0.5) % Neut % (Auto) 63.6 (45.5-73.1) % Lymph % (Auto) 24.1 (18.3-44.2) % [place] % (Auto) 9.7 H (2.6-8.5) % Eos % (Auto) 1.9 (0-4.4) % Baso % (Auto) 0.4 (0.2-1.2) % Lymph # (Auto) 1.64 (0.9-3.2) K/mm3 [place] # (Auto) 0.7 H (0.1-0.6) K/mm3 Eos # (Auto) 0.1 (0-0.3) K/mm3 Baso # (Auto) 0.0 (0.0-0.1) K/mm3 Abs Immat Gran (auto) 0.02 (0.00-0.031) K/mm3 Absolute Neuts (auto) 4.3 (1.3-6.7) K/mm3 Absolute Nucleated RBC 0.000 (0.0-0.012) K/mm3 Nucleated RBC % 0.0 (0.0-0.2) % Sodium 136 L (137-145) mmol/L Potassium 4.5 (3.4-5.0) mmol/L Chloride 101 (98-107) mmol/L Carbon Dioxide 25 (22-30) mmol/L Anion Gap 10 (4-12) mmol/L BUN 14 (7-17) mg/dL Creatinine 0.78 (0.7-1.0) mg/dL Estim Creat Clear Calc 46 ml/min Estimated GFR > 60 (59 - ) Glucose 260 H (65-110) mg/dL Calcium 9.1 (8.4-10.2) mg/dL Magnesium 1.8 (1.6-2.3) mg/dL Total Bilirubin 0.3 (0.2-1.3) mg/dL AST 31 (14-36) U/L ALT 29 (6-35) U/L Alkaline Phosphatase 69 (38-126) U/L Total Protein 7.7 (6.3-8.2) g/dL Albumin 4.3 (3.5-5.1) g/dL Urine Color Yellow (Yellow) Urine Appearance Turbid H (Clear) Urine pH 5.0 (5.0-9.0) Ur Specific [place] 1.039 H (1.001-1.035) Urine Protein 2+ H (Negative) mg/dL Urine Glucose (UA) 2+ H (Negative) mg/dL Urine Ketones 1+ H (Negative) mg/dL Ur Blood (Man) Trace (Negative) Urine Nitrate Negative (Negative) Urine Bilirubin Negative (Negative) Urine Urobilinogen 1.0 (<2.0) mg/dL Add Ur Microanalysis Reviewed Leukocyte Esterase Rfl 1+ H (Negative) BLAYNE/UL Urine RBC 3-5 H (0-2) /hpf Urine WBC >100 H (0-3) /hpf Ur Squamous Epith Cells Many H (Few) /hpf Urine Bacteria 4+ H /hpf Urine Casts 6-10 Hyaline Casts Present (None) /lpf Urine Mucus Present /lpf Discharge Plan Discharge Clinical Impression: Acute UTI, Delirium Patient Disposition: SNF Condition: Improved Instructions: Urinary Tract Infection in Older Adults (ED) Additional Instructions: Please follow-up with the family doctor within the next 3-5 days. Return emergency department if any new or worsening symptoms develop. Take prescribed antibiotic as instructed for UTI. Patient Language: Bangladeshi Prescriptions: New cephalexin 500 mg capsule 500 mg PO Q12H 7 Days Qty: 14 0RF Follow-up/Referrals: PHYSICIAN NOT ON STAFF,NONSTAFF [Primary Care Provider] - 3 Days Yan Sarmiento MD [Physician, Family Practice] - 3 Days Time of Disposition: 22:15
[2025-03-20 22:15] LABS: Alanine Aminotransferase 29 U/L (6-35); Albumin Level 4.3 g/dL (3.5-5.1); Alkaline Phosphatase 69 U/L (38-126); Anion Gap 10 mmol/L (4-12); Aspartate Amino Transferase 31 U/L (14-36); Bilirubin,Total 0.3 mg/dL (0.2-1.3); Blood Urea Nitrogen 14 mg/dL (7-17); Calcium 9.1 mg/dL (8.4-10.2); Carbon Dioxide 25 mmol/L (22-30); Chloride 101 mmol/L (98-107); Estimated CRCL calculation 46 ml/min; Estimated Glomerular Filt Rate > 60; Glucose 260 mg/dL (65-110); Magnesium 1.8 mg/dL (1.6-2.3); Potassium 4.5 mmol/L (3.4-5.0); Sodium 136 mmol/L (137-145); Total Protein 7.7 g/dL (6.3-8.2)
[2025-03-20 23:37] VITALS: BP 150/71; PULSE 85; RESP 20; TEMP 37.1; O2SAT 97
== END 2025-03-20 23:39 ==
PROVIDERS: Emergency Provider Emergency Medicine
DX: N39.0 Urinary tract infection, site not specified (principal); R41.0 Disorientation, unspecified
CPT/HCPCS: 36415; 71045; 80053; 81001; 83735; 85025; 96365; 99284; J0696; J7030

== ENCOUNTER 2025-03-26 09:48 | Emergency (ER) | payer MEDICARE, SELFPAY ==
[2025-03-26] VITALS (9 sets, daily range): BP systolic 126–145; BP diastolic 64–76; PULSE 66–74; RESP 14–20; TEMP 36.8; O2SAT 92–96
--- NOTE | ~2025-03-26 | XR_ITS ---
Examination: XR chest 2V Clinical History: ams Comparison: X-ray 03/20/2025 Technique: PA and Lateral Findings: Heart size unchanged. Elevated right hemidiaphragm, associated basilar atelectasis. Left basilar patchy opacity. No acute bony abnormality. IMPRESSION: 1. Persistent bibasilar atelectasis and/or airspace disease. Reviewed, dictated and finalized at location R.
--- NOTE | ~2025-03-26 | CT_ITS ---
CT HEAD NON-CONTRAST Clinical History: AMS Comparison: None Technique: Unenhanced axial images skull base to vertex Coronal, sagittal reformats CT images acquired with automatic exposure control for dose reduction DLP: 605 mGy-cm Findings: Global atrophy. White matter changes from chronic microvascular ischemic disease. Cysts Sulci, ventricles: Unremarkable. No intracerebral hemorrhage. No evidence acute territorial infarct. No mass effect, midline shift. Bony calvarium intact. Visualized paranasal sinuses: Clear. Mastoid air cells: Clear. IMPRESSION: 1. No acute intracranial findings. Reviewed, dictated and finalized at location R.
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
--- OUTSIDE RECORDS SUMMARY | 2025-03-26 10:53 | XMS_ITS | Encounter Summary ---
Author Organization [facility] Address [address] [place] [address] Care Team Providers Care Middle School Tutor Name Role Phone Ugo Null MD Primary Care Provider Ugo Null MD Primary Care Provider Simone Rickyabdullahi Ruvalcaba LPN Unavailable [phone] Ирина Ley MA Unavailable [phone] Reason for Referral * Diagnostic Imaging (Routine) - Closed Specialty Diagnoses / Procedures Referred By Contac t Referred To Contact Procedures Dexa Axial Skeleton Bone Density 1 or 2 Site [facility] Health Information Management [address] [place] [address] Phone: tel: fax: [facility] Referral ID Status Reason Start Date Expiration Date Visits Re quested Visits Authorized [id number] Closed 05/08/2019 11/16/2020 1 1 SHAPER Encounter Details Date Type Department Care Team (Late st Contact Info) Description 06/10/2010 Orders Only [facility] Health Information Management [address] [place] [address] Ugo Null MD [address] [place] [address] [place] [address] Social History Tobacco Use Types Packs/Day Years Used Date Smoking Tobacco: Never Assessed Comments Unknown Sex and Gender Information Value Date Recorded Sex Assigned at Not on file Legal Sex Female 

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
--- OUTSIDE RECORDS SUMMARY | 2025-03-26 10:53 | XMS_ITS | Encounter Summary ---
Author Organization [facility] Healthcare Address [address] [place] [address] Care Team Providers Care Hair Colorist Name Role Phone Ugo Null MD Primary Care Provider Ирина Ley MA Unavailable [phone] Reason for Visit * Reason Onset Date Comments Additional Services Or Orders 03/16/2025 Encounter Details Date Type Department Care Team (Late st Contact Info) Description 03/16/2025 Telephone [facility] Primary Care at [address] [place] [address] Ugo Null MD [address] [place] [address] [address] [place] [address] Additional Services Or Orders Social History Tobacco [...] on file 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 Fax number found in previous message. * [...] the practice, facility name, address, phone/fax offacility): [facility] Additional Comments: Patient's daughter Ro did not have any other information to provide. Does message need to be routed? Yes-Action Needed documented in this encounter Plan of Treatment Not on file documented as of this encounter Visit Diagnoses Not on filedocumented in this encounter Care Teams Hair Colorist Relationship Specialty Start Date End Date Ugo Null MD PCP - General 10/29/12 Ирина Ley, RAMOS [address] [address] [place] [address] ACO Care Furnace Packer 03/13/25 documented as of this encounter
--- OUTSIDE RECORDS SUMMARY | 2025-03-26 10:53 | XMS_ITS | Clinical Summary ---
Author Organization [facility] Address [address] [place] [place] [address] Care Team Providers Care Hvac Technician Name Role Phone Ugo Null MD Primary Care Provider Source Comments [facility],non-owned Affiliates and Associated Physician Practices is amultiple site organization consisting of ambulatory clinics and hospital sitesin [place], [place], [place] and [place]. This disclosure is being madepursuant to the Care Everywhere program and may not contain all information available regarding this patient. Last updated 18.[facility] Allergies Active Allergy Reactions Criticality Noted Date [...] on file Legal Sex Female 1:32 PM FINANCIAL SALES ADVISOR Gender Identity Not on file Sexual Orientation Not on file Last Filed Vital Signs Vital Sign Reading Time Taken Comments Blood Pressure - - Pulse - - Temperature - - Respiratory Rate - - Oxygen Saturation - - Inhaled Oxygen Concentration - - Weight 86.2 kg (190 lb) 06/17/2019 11:06 AM FINANCIAL SALES ADVISOR Height 162.6 cm (5' 4) 06/17/2019 11:06 AM FINANCIAL SALES ADVISOR Body Mass Index 32.61 06/17/2019 11:06 AM FINANCIAL SALES ADVISOR Plan of Treatment Health Maintenance Due Date [...] age to complete this topic Insurance MEDICARE [employer] Care Teams Hvac Technician Relationship Specialty Start Date End Date Ugo Null MD [address] [place] [id number] PCP - General Internal Medicine 06/17/19
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
--- OUTSIDE RECORDS SUMMARY | 2025-03-26 10:53 | XMS_ITS | Clinical Summary ---
Author Organization [facility] Medical Office Building A Address [address] [place] [address] Care Team Providers Care Linoleum Mechanic Name Role Phone Ugo Null MD Primary Care Provider Ирина Ley MA Unavailable [phone] Allergies Active Allergy Reactions Criticality Noted [...] 07/30/2018 Assessment & Plan (07/30/2018 4:11 PM BANANA GRADER): Continue with current vitamin-D weekly supplementation as previously prescribed. Repeat vitamin-D level as scheduled Medicare annual wellness visit, subsequent 07/30 Assessment & Plan (07/30/2018 4:13 PM BANANA GRADER): Pt was advised to continue current therapy [...] hypertension. Assessment & Plan (07/30/2018 4:09 PM BANANA GRADER): Asymptomatic at this time. Last hemoglobin A1c [...] HYPERLIPIDEMIA Assessment & Plan (07/30/2018 4:06 PM BANANA GRADER): Stable with total cholesterol at 216, triglycerides [...] Osteoarthrosis Assessment & Plan (07/30/2018 4:07 PM BANANA GRADER): Polyarthralgias well controlled with use of OTC [...] 07/30/2018 Assessment & Plan (07/30/2018 4:13 PM BANANA GRADER): Pt wishes to proceed forward with cataract [...] Hypothyroidism Assessment & Plan (07/30/2018 4:16 PM BANANA GRADER): Previous euthyroid asymptomatic in office today. Upcoming TSH level scheduled prior to next office visit May to start on medications if indicated. Encounters Date Type Department Care Team Description 03/26/2025 Telephone [facility] Primary Care at [address] [phone] Ugo Null MD Medical Question/Miscellane ous 03/16/2025 Orders Only [facility] Primary Care at [address] [phone] Ugo Null MD Alzheimer's disease (Primary Dx) 03/16/2025 Telephone [facility] Medical [facility] Primary Care at [address] [phone] Ugo Null MD Additional Services Or Orders 03/13/2025 VAL ED Outreach [facility] Accountable Care Organization [address] [place] [id number] Ирина Ley MA 03/12/2025 4:36 PM CDT - 03/12/2025 11:59 PM CDT Hospital Encounter [facility] Moo Pang MD Discharge Disposition: Discharge to home or self care 03/12/2025 2:23 PM CDT - 03/12/2025 4:35 PM CDT Emergency [facility] Emergency Department [address] [place] [address] Moo Pang MD Aggressive behavior (Primary Dx) Discharge Disposition: Discharge to home or self care 03/12/2025 Telephone [facility] Medical [facility] Primary Care at [address] [phone] Ugo Null MD Medical Question/Miscellane ous 03/03/2025 Orders Only [facility] Primary Care at [address] [place] [phone] Ugo Null MD 03/02/2025 Telephone [facility] Primary Care at [address] [place] [phone] Ugo Null MD 02/27/2025 Orders Only [facility] Primary Care at [address] [place] [phone] Ugo Null MD 02/20/2025 Telephone [facility] Primary Care at [address] [place] [phone] Ugo Null MD Medical Question/Miscellane ous; Call Back 02/13/2025 Orders Only [facility] Medical [facility] Primary Care at [address] [phone] Ugo Null MD from Last 3 Months Immunizations Immunization Administration Dates Next Due Hep A, Adult 05/06/2015 Influenza, Quadrivalent, Hig h Dose, Preservative Free, Intrr 06/28/2021,05/24/2020 Influenza, Split 03/30/2010 Influenza, Trivalent, High D ose, Split, Preservative Free, Intramuscular 06/09/2019,06/09/2019,03/28/2018,05/17,05/08/2016,04/29/2015,04/02/2013 Influenza, Trivalent, IM (MDV) 06/24/2014,2012 Influenza, Trivalent, Preser vative Free, Intramuscular 07/09/2010 Influenza, Unspecified 09/25/2023(Deferr ed: Patient Refused),09/12/2022(Deferred: Patient Refused - getting at [facility]),03/28/2018 Moderna SARS-CoV-2 Monovalen t Vaccination (12+ YRS) 09/21/2020,08/18/2020 Pneumococcal Conjugate PCV 13 11/26/2014 Pneumococcal Polysaccharide PPV23 07/09/2010 Tdap 12/27/2018 ZOSTER LIVE 05/01/2017 Surgical History Surgery Date Site/Laterality Comments OTHER SURGICAL HISTORY 1981 cyst on liver: cyst removed HYSTERECTOMY 1979 Hysterectomy OTHER SURGICAL HISTORY 2011 Er Visit-swollen leg/[place] [facility] HYSTERECTOMY Hysterectomy HERNIA REPAIR Hernia repair Medical History Medical History Date Comments 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 Hx Other Medical 02-GI Hx Other Medical cyst on liver Arthritis Arthritis History of multiple allergies [place] Hypertension Hypertension Diabetes mellitus (HCC) Diabetes Disorder [...] on file Legal Sex Female 8:01 PM BANANA GRADER Gender Identity Not on file Sexual Orientation [...] 06/28/2021, Additional history exists eGFR 03/12/2026 03/12/2025, 04/2 11/2024, 09/20/2023, Additional history exists DTaP/Tdap/Td Vaccine [...] Schedule Routine, Read Routine (OP Routine) 03/19/2020 [facility] DIABETES FOOT EXAM Routine 11/25/2019 HM DEXA SCAN Routine 01/25/2017 COLONOSCOPY IMAGES 05/16/2016 [...] LAB BLOOD ORDERABLES Final R esult [facility] ([place]) 1 [facility] Department [place] [address] * Differential, auto (03/12/2025 2:54 PM CDT) Neutrophil abs 3.73 1.50 - 6.50 K/cumm Imm gran abs 0.01 0.00 - 0.10 K/cumm [facility] ([place]) Lymphocyte abs 2.29 0.80 - 3.30 K/cumm [facility] ([place]) Monocyte abs 0.60 0.20 - 0.80 K/cumm [facility] ([place]) Eosinophil abs 0.29 0.00 - 0.50 K/cumm [facility] ([place]) Basophil abs 0.04 0.00 - 0.10 K/cumm [facility] ([place]) Neutrophil pct 53.6 % [facility] ([place]) Comment: Interpretive Data Percent cell count reference ranges are not reported, since discordance with absolute values may lead to misinterpretation of CBC data. Current Interpretive Data was last revised on 2017. Imm gran pct 0.1 % [facility] ([place]) Comment: Interpretive Data Percent cell count reference ranges are not reported, since discordance with absolute values may lead to misinterpretation of CBC data. Current Interpretive Data was last revised on 2017. Lymphocyte pct 32.9 % [facility] ([place]) Comment: Interpretive Data Percent cell count reference ranges are not reported, since discordance with absolute values may lead to misinterpretation of CBC data. Current Interpretive Data was last revised on 2017. Monocyte pct 8.6 % [facility] ([place]) Comment: Interpretive Data Percent cell count reference ranges are not reported, since discordance with absolute values may lead to misinterpretation of CBC data. Current Interpretive Data was last revised on 2017. Eosinophil pct 4.2 % [facility] ([place]) Comment: Interpretive Data Percent cell count reference ranges are not reported, since discordance with absolute values may lead to misinterpretation of CBC data. Current Interpretive Data was last revised on 2017. Basophil pct 0.6 % [facility] ([place]) Comment: Interpretive Data Percent cell count reference ranges are not reported, since discordance with absolute values may lead to misinterpretation of CBC data. Current Interpretive Data was last revised on 2017. Blood 03/12/2025 2:54 PM CDT 03/12/2025 2:57 PM CDT Moo Pang MD LAB BLOOD ORDERABLES Final R esult [facility] ([place] 1 [facility] Department [place] [address] * (ABNORMAL) Urinalysis reflex to microscopic and culture Urine (03/12/2025 2:54 PM CDT) Color, ur Yellow Yellow Clarity, ur Clear Clear [facility] ([place]) Specific gravity, ur 1.028 1.003 - 1.030 [facility] ([place]) pH, urine 5.5 [facility] ([place]) Comment: Interpretive Data U rine pH is affected by diet, medications, systemic acid-base disturbances, and renal tubular function. pH may affect urinary stone formation. For example, urine pH below 6.0 may help reduce the tendency for calcium phosphate stones and pH greater than 6.0 may reduce the tendency for uric acid stone formation. Source: [facility] Current Interpretive Data was last revised on 2017 Protein, ur ql Trace Negative [facility] ([place]) Glucose, ur ql 4+(A) Negative [facility] [...] 2:57 PM CDT Moo Pang MD LAB MICROBIOLOGY - GENERAL O RDERABLES Final Result [facility] ([place]) 1 [facility] Department [place] [address] * CBC with auto differential (03/12/2025 2:54 [...] RDW SD 46.0 35.7 - 48.1 fL [facility] ([place]) NRBC abs 0.00 0.00 - 0.01 K/cumm [facility] Blood 03/12/2025 2:54 PM CDT 03/12/2025 2:57 PM CDT Moo Pang MD LAB BLOOD ORDERABLES Final R esult Performing Organization Address City/[facility]/ZIP Co de Phone Number [facility] ([place]) 1 [facility] [place] [address] * (ABNORMAL) Valproic acid level, total (03/12/2025 2:54 PM CDT) Valproic Acid 6.6(L) 50.0 - 100.0 mcg/mL [facility] ([place]) Comment: Interpretive Data Therapeutic range: 50-100 mcg/mL Current interpretive data was last revised on 2014 Blood 03/12/2025 2:54 PM CDT 03/12/2025 2:57 PM CDT Moo Pang MD LAB BLOOD ORDERABLES Final R esult Performing Organization Address City/[facility] Co de Phone Number [facility] ([place] 1 [facility] [place] [address] * (ABNORMAL) Comprehensive metabolic panel (03/12/2025 2:54 PM CDT) Sodium 136 135 - 145 mmol/L [facility] Potassium, pl 4.7 3.3 - 4.9 mmol/L [facility] Chloride 103 97 - 110 mmol/L [facility] ([place]) CO2 22 22 - 32 mmol/L [facility]) Anion gap 11 2 - 15 mmol/L [facility] BUN 16 6 - 25 mg/dL [facility] Creatinine 0.57(L) 0.60 - 1.10 mg/dL [facility] ([place]) Glucose 243(H) 70 - 199 mg/dL [facility] ([place]) Comment: Interpretive Data Fasting glucose >/= [...] LAB BLOOD ORDERABLES Final R esult [facility] ([place]) 1 [facility] Department [place] [address] * Albumin Creatinine Ratio, Urine (10/31/2024 12:25 PM CDT) Albumin Ur 24.6 mg/L Comment: Interpretive Data No reference range established. Current interpretive data was last revised 2018. Testing performed by: [facility], [address] [place] [address], [place]., [address] Creatinine Ur 233.9 mg/dL [facility] Comment: Interpretive Data No reference range established. Current interpretive data was last revised 2018. Testing performed by: [facility], [address] [place] [address]., [id number] Albumin Creatinine Ratio, Ur 11 1 - 29 mg/g [facility] ([place]) Comment:Testing performed by : [facility], [address] [place] [address]., [id number] Urine 10/31/2024 12:2 5 PM CDT 10/31/2024 4:19 PM CDT Ugo Null MD LAB URINE ORDERABLES Fi nal Result Performing Organization Address [facility] de Phone Number [facility] ([place]) 1 [facility] [place] [address] * (ABNORMAL) Hemoglobin A1c (10/31/2024 12:25 PM CDT) Hgb A1C 8.0(H) 4.0 - 5.6 % Estimated Average Glucose 183 mg/dL [facility] ([place]) Comment: The ADA recommends reporting an estimated Average Glucose (eAG) with all Hemoglobin A1c results using the equation derived from a study of 507 normal and diabetic adults. Minority populations were underrepresented and children were not included. (Diabetes Care 31:4681-8158, 2008). The eAG is not equivalent to a fasting glucose. Blood 10/31/2024 12:2 5 PM CDT 10/31/2024 1:23 PM CDT Ugo Null MD LAB BLOOD ORDERABLES Fi nal Result Performing Organization Address [facility] Co de Phone Number [facility] ([place]) 1 [facility] [place] [address] * (ABNORMAL) Lipid panel (10/31/2024 12:25 PM [...] 2018. LDL, calculated 119 <=129 mg/dL [facility] ([place]) Comment: Interpretive Data Ages < or [...] 2024. Non-HDL Cholesterol 170 mg/dL [facility] ([place]) Comment: Interpretive Data Ages < or = [...] Fi nal Result [facility] ([place]) 1 [facility] Department [place] [address] * Diabetic Eye Exam (03/19/2020) Historical Provider HEALTH MAINTENANCE Final Result * Screening Mammogram Bilateral W Shahid (03/19/2020) Anatomical Region Laterality Modality Breast Bilateral Mammography Historical Provider IMG MAMMO PROCEDURES Idalmis l Result * [facility] DIABETES FOOT EXAM (11/25/2019) Diabetic Foot Exam Abnormal Historical Provider HEALTH MAINTENANCE Final Result * DEXA SCAN (01/25/2017) DEXA Scan Normal Historical Provider HEALTH MAINTENANCE Final Result * COLONOSCOPY IMAGES (05/16/2016) Anatomical Region Laterality Modality Other Narrative 05/16/2016 Ordered by an unspecified provider. Historical Provider GI PROCEDURE ORDERABLES F inal Result from Last 3 Months or Most Recently Relevant to Health Maintenance Insurance [facility] SUPPLEMENT INSURANCE MEDICARE MEDICARE [facility]IC[facility] SUPPLEMENT INSURANCE [facility] [place] [id number] [facility] Care Teams Linoleum Mechanic Relationship Specialty Start Date End Date Ugo Null MD PCP - General 10/29/12 Ирина Ley, RAMOS [address] [place] [id number] ACO Care Special Skills Officer 03/13/25
--- OUTSIDE RECORDS SUMMARY | 2025-03-26 10:53 | XMS_ITS | Clinical Summary ---
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
--- OUTSIDE RECORDS SUMMARY | 2025-03-26 10:53 | XMS_ITS | Encounter Summary ---
Author Organization [facility] Address [address] [place] [address] Care Team Providers Care Machine Inker Name Role Phone Ugo Null MD Primary Care Provider [phone] Encounter Details Date Type Department Care Team (Late st Contact Info) Description 05/20/2007 Outpatient Historical [facility] Nai Mcrae MD 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
[2025-03-26 11:10] LABS: Hematocrit 42.6 % (37.0-47.0); Hemoglobin 13.2 g/dL (12.0-15.0); Immature Granulocyte Percent A 0.3 % (0-0.5); Lymphocytes Absolute Auto 1.71 K/mm3 (0.9-3.2); Mean Corpuscular HGB Conc 31.0 g/dl (32-36); Mean Corpuscular Hemoglobin 28.1 pg (26-34); Mean Corpuscular Volume 90.8 fl (80-100); Nucleated Red Blood Cells Absolute Auto 0.000 K/mm3 (0.0-0.012); Nucleated Red Blood Cells Perc 0.0 % (0.0-0.2); Platelet Count Result 247 k/mm3 (150-375); Red Blood Count 4.69 M/mm3 (4.2-5.4); White Blood Count 5.8 K/mm3 (4.5-10.0)
[2025-03-26 11:22] LABS: Alanine Aminotransferase 20 U/L (6-35); Albumin Level 3.8 g/dL (3.5-5.1); Alkaline Phosphatase 65 U/L (38-126); Anion Gap 7 mmol/L (4-12); Aspartate Amino Transferase 24 U/L (14-36); Bilirubin,Total 0.2 mg/dL (0.2-1.3); Blood Urea Nitrogen 11 mg/dL (7-17); Calcium 8.6 mg/dL (8.4-10.2); Carbon Dioxide 27 mmol/L (22-30); Chloride 103 mmol/L (98-107); Estimated CRCL calculation 62 ml/min; Estimated Glomerular Filt Rate > 60; Glucose 311 mg/dL (65-110); Potassium 4.6 mmol/L (3.4-5.0); Sodium 137 mmol/L (137-145); Total Protein 6.7 g/dL (6.3-8.2)
[2025-03-26 11:25] LABS: INR 1.0; Partial Thromboplastin Time 27.0 Seconds (22.3-36.8); Prothrombin Time 13.1 Seconds (11.1-14.7)
[2025-03-26] MEDS: LACTATED RINGERS 1,000 ML 999 ML IV CONT (11:38)
--- NOTE | 2025-03-26 11:39 | PC.NURSE ---
EDP states we can obtain urine sample through [facility]
[2025-03-26 13:08] LABS: Add Urine Microscopic? NO; Appearance Urine Clear (Clear); Glucose Urine UA 3+ mg/dL (Negative); Leukocyte Esterase Ur Negative LEU/UL (Negative); Nitrate Urine Negative (Negative); Specific Grav Ur 1.024 (1.001-1.035)
--- NOTE | 2025-03-26 14:50 | PC.NURSE ---
called report to [facility] at this time and spoke to FELICE Nicole
== END 2025-03-26 14:44 ==
PROVIDERS: Emergency Provider Emergency Medicine
DX: R45.6 Violent behavior (principal)
CPT/HCPCS: 36415; 70450; 71046; 80053; 81003; 83605; 85025; 85610; 85730; 96360; 99284; J7120